=== PATIENT | male | born 1995 | race Two or more races ===

== ENCOUNTER 2017-11-29 03:01 | Emergency (ER) | payer SELFPAY ==
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
[2017-11-29 07:14] VITALS: BP 133/63; PULSE 113; RESP 18; TEMP 98.9
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
[2017-11-29 22:53] VITALS: O2SAT 96
== END 2017-11-29 07:13 | disposition home or self-care (01) ==
LOC: H.ER 03:01
DX: F10.10 Alcohol abuse, uncomplicated (principal); S09.90XA Unspecified injury of head, initial encounter; W19.XXXA Unspecified fall, initial encounter; Y92.89 Other specified places as the place of occurrence of the external cause; J32.9 Chronic sinusitis, unspecified
CPT/HCPCS: 70450; 70486; 82948; 99282; G0480